=== PATIENT | male | born 1970 | race Caucasian/White ===

== ENCOUNTER 2020-07-16 08:02 | Outpatient (CLI) | payer OTHER, SELFPAY ==
--- NOTE | 2020-07-16 08:30 | FL_ITS ---
WS: [id number] UPPER GI WITH AIR TECHNICAL: Double contrast upper GI FLUOROSCOPY TIME: 2.3 minutes CLINICAL INFORMATION: GASTRITIS WITH HEMORRHAGE COMPARISON: Esophagram 8 28,014 and 1 13,009 FINDINGS: Swallowing: Normal swallowing mechanism. No aspiration or penetration. Esophagus: Normal esophageal caliber. Mild to moderate dysmotility with delayed emptying. No evidence of stricture or obstructing mass. Reflux esophagitis in the distal third esophagus. Marked Reflux is visualized in the upright and supine positions to the pharynx. Gastroesophageal reflux: Marked reflux in the upright and supine positions to the pharynx. Stomach: Gastric rugal thickening consistent with gastritis. A few small erosions in the gastric fund us and body. No evidence of gastric outlet obstruction. No filling defects or obstructing mass. Small esophageal hiatal hernia unchanged. Duodenum: Normal. Other findings: None. FL/FL upper GI w air* [id number] IMPRESSION: 1. Mild to moderate esophageal dysmotility likely related to reflux esophagiti s. No evidence of reflux esophagitis in the distal one third esophagus. 2. Marked reflux is visualized in the upright and supine positions to the phar ynx. 3. Delayed esophageal emptying due to dysmotility. No evidence of obstructing stricture or mass. 4. Evidence of gastritis with gastric rugal thickening. A few small erosions/u lcerations in the gastric fundus and body. This can be further evaluated with e ndoscopy. 5. Small esophageal hiatal hernia unchanged since 2013
== END 2020-07-16 08:03 | disposition home or self-care (01) ==
PROVIDERS: Family Provider Electrodiagnostic Medicine; PCP Electrodiagnostic Medicine; Visit Provider Electrodiagnostic Medicine
DX: K29.71 Gastritis, unspecified, with bleeding (principal); I10 Essential (primary) hypertension; E78.5 Hyperlipidemia, unspecified; K21.9 Gastro-esophageal reflux disease without esophagitis; K44.9 Diaphragmatic hernia without obstruction or gangrene
CPT/HCPCS: 74246

== ENCOUNTER → 2022-06-22 13:31 | Outpatient (BNVA) | payer OTHER, SELFPAY | PROVIDERS: Family Provider Electrodiagnostic Medicine; PCP Family Medicine; Visit Provider Podiatrist Foot & Ankle Surgery | DX: M20.42 Other hammer toe(s) (acquired), left foot; M21.611 Bunion of right foot; M21.612 Bunion of left foot | CPT/HCPCS: 73630 ==

== ENCOUNTER → 2023-01-02 15:14 | Outpatient (BNVA) | payer OTHER, SELFPAY | PROVIDERS: Family Provider Electrodiagnostic Medicine; PCP Family Medicine; Visit Provider Registered Nurse Neonatal Intensive Care | DX: S69.92XA Unspecified injury of left wrist, hand and finger(s), initial encounter (principal); X58.XXXA Exposure to other specified factors, initial encounter | CPT/HCPCS: 73130 ==

== ENCOUNTER → 2023-03-16 13:05 | Outpatient (BNVA) | payer OTHER, SELFPAY | PROVIDERS: Family Provider Electrodiagnostic Medicine; PCP Family Medicine; Visit Provider Family Medicine | DX: R00.0 Tachycardia, unspecified (principal) | CPT/HCPCS: 80053; 83735; 84443; 85025 ==

== ENCOUNTER 2023-12-15 08:32 | Outpatient (CLI) | payer OTHER, SELFPAY ==
--- NOTE | 2023-12-15 08:43 | XRR_ITS ---
PROCEDURE INFORMATION: Exam: XR Left Hand Exam date and time: 12/15/2023 9:09 AM Age: 53 years old Clinical indication: Screening exam; Foreign body 4/5 metacarpal heads TECHNIQUE: Imaging protocol: Radiologic exam of the left hand. Views: 3 or more views. COMPARISON: CR XR hand LT min 3V* [id number] 01/02/2023 3:21 PM FINDINGS: Bones/joints: Stable (2 mm) small metal splinter between the 4th and 5th metacarpal heads also seen previously. The small density which had projected over the thenar eminence is no longer seen. Soft tissues: Normal. XR/XR hand LT min 3V* [id number] IMPRESSION: Small metallic foreign body.
== END 2023-12-15 08:33 | disposition home or self-care (01) ==
LOC: RAD 08:33
PROVIDERS: PCP Family Medicine; Visit Provider Family Medicine
DX: S60.552A Superficial foreign body of left hand, initial encounter (principal); X58.XXXA Exposure to other specified factors, initial encounter
CPT/HCPCS: 73130

== ENCOUNTER 2024-05-03 09:56 | Outpatient (CLI) | payer OTHER, SELFPAY ==
--- NOTE | 2024-05-03 10:00 | XR_ITS ---
WS: [id number] Lumbar spine, AP and lateral upright views, 05/03/2024 Clinical Data: worsening chronic back pain Comparison: Lumbar spine, 01/30/2018 Findings: No compression fractures or subluxation is seen there is degenerative disc narrowing at L1-L2 and L2- L3.there are prominent anterior spurs at L1-L2 and L2-L3. There is minimal anterior subluxation of 0. 3 cm of L5 on S1 with a probable bilateral L5-S1 spondylolysis. The transverse processes and SI joint s are normal. XR/XR lumbar spine 2-3V* [id number] Impression: 1. Degenerative disc narrowing at L1-L2 and L2-L3 with prominent anterior spurs . 2. Probable bilateral L5-S1 spondylolysis with 0.3 cm anterior subluxation of L 5 on S1.
== END 2024-05-03 09:57 | disposition home or self-care (01) ==
LOC: RAD 09:57
PROVIDERS: PCP Family Medicine; Visit Provider Family Medicine
DX: M54.50 Low back pain, unspecified (principal); I10 Essential (primary) hypertension
CPT/HCPCS: 72100; 80053

== ENCOUNTER 2024-05-30 12:35 | Outpatient (CLI) | payer OTHER, SELFPAY ==
--- NOTE | 2024-05-30 13:00 | MR_ITS ---
WS: [id number] MRI LUMBAR SPINE NONCONTRAST HISTORY: worsening chronic low back pain, now w/ radiculopathy COMPARISON: 11/22/2017 TECHNIQUE: Sagittal and axial multisequence imaging is submitted. Patient has known cervical syrinx at C6-7 and thoracic syrinx in the mid to lower thoracic spine. Normal lumbar alignment with no compression fractures or marrow edema. Disc spaces and vertebral body heights are well-preserved. Conus terminates normally at conus tapers normally and ends at the L2-3 disc level. L1-L2: Minimal atherosclerosis. Central annular fissure. No stenosis. L2-L3: Mild ligamentum flavum and facet arthritis. L3-L4: Mild annular disc bulging with ligamentum flavum and facet arthritis. Mild bilateral foraminal narrowing. No high-grade stenosis. L4-L5: Mild annular disc bulge with a central disc protrusion and annular fissure. Moderate ligamentu m flavum and facet arthritis. Mild bilateral foraminal narrowing. There is mild encroachment upon the exiting L4 nerve roots. L5-S1: Mild annular disc bulge with a central disc protrusion. Mild osteophytosis. Moderate facet arvind nt arthritis. Mild bilateral foraminal narrowing. Slightly greater disc protrusion extending into the RIGHT foramen abutting the exiting RIGHT L5 nerve root. MR/MR lumbar spine wo con* [id number] IMPRESSION: 1. No high-grade central or foraminal stenosis. Minimal progression of facet j oint arthritis and disc disease since 2018. 2. L5-S1: Moderate facet arthritis. Mild bilateral foraminal stenosis, RIGHT g reater than LEFT. Slightly greater encroachment upon the RIGHT exiting L5 nerve root. Similar to the prior study. 3. Mild bilateral foraminal narrowing at L3-4 and L4-5.
== END 2024-05-30 12:36 | disposition home or self-care (01) ==
PROVIDERS: PCP Family Medicine; Visit Provider Family Medicine
DX: M54.32 Sciatica, left side (principal); M47.896 Other spondylosis, lumbar region; M47.898 Other spondylosis, sacral and sacrococcygeal region
CPT/HCPCS: 72148

== ENCOUNTER → 2024-06-11 15:31 | Outpatient (BNVA) | payer OTHER, SELFPAY | PROVIDERS: PCP Family Medicine; Visit Provider Orthopaedic Surgery | DX: M54.50 Low back pain, unspecified (principal) | CPT/HCPCS: 72110 ==

== ENCOUNTER 2025-03-28 11:44 | Outpatient (CLI) | payer OTHER, SELFPAY ==
[2025-03-28 12:10] VITALS: BMI 24.0
--- NOTE | 2025-03-28 12:15 | ECG_ITS ---
[facility] Date: 2025-03-28 Pat Name: Sampson Sandoval Department: Room: Gender: Male Hand Inspector: : 1970 Requested By: Rika Velazquez Order Number: [id number] Jeffries MD: Carlito Rodriguez M.D. Interpretive Statements EXERCISE STRESS TEST EXERCISE DATA: The patient was exercised by [place] protocol. Baseline heart rate was 67 beats per minute. Baseline blood pressure was 149/101 millimeters of mercury. Maximal predicted heart rate was 163 beats per minute. Maximum heart rate achieved was 178 which was 109% of the maximum predicted heart rate. Maximum blood pressure jkk133/89millimeters of mercury. Total exercise time was 12 minutes and 40 seconds. Maximum METs achieved was 17.2. The reason for ending the test was target heart rate achieved. The patient complained of shortness of breath during the stress test, which then resolved at the end of the test. ELECTROCARDIOGRAM: BASELINE: Showed sinus rhythm, normal axis, no significant ST-T changes at the baseline noted. [] EXERCISE: At the peak exercise level, [] No significant ST-T changes suggestive of ischemia noted. [] RECOVERY: During the recovery period, heart rate dropped appropriately. No significant ST-T changes in the recovery suggestive of ischemia noted. [] CONCLUSION: 1. Exercise capacity is excellent 2. Heart rate response was appropriate 3. Blood pressure response was appropriate 4. Symptoms not suggestive of ischemia. 5. Stress test was not suggestive of ischemia. Electronically Signed On 04-12-2025 13:25:08 CDT by Carlito Rodriguez M.D. [email or web address]
[2025-03-28 12:58] VITALS: BP 151/92; PULSE 78
== END 2025-03-28 11:45 | disposition home or self-care (01) ==
PROVIDERS: PCP Family Medicine; Visit Provider Family Medicine
DX: R07.89 Other chest pain (principal)
CPT/HCPCS: 93017

== ENCOUNTER → 2025-09-15 15:06 | Outpatient (BNVA) | payer OTHER, SELFPAY | PROVIDERS: PCP Family Medicine; Visit Provider Family Medicine | DX: L98.9 Disorder of the skin and subcutaneous tissue, unspecified (principal); D17.0 Benign lipomatous neoplasm of skin and subcutaneous tissue of head, face and neck | CPT/HCPCS: 88304 ==